=== PATIENT | female | born 1960 | race Caucasian/White ===

== ENCOUNTER 2016-07-28 17:13 | Inpatient (IN) | payer OTHER ==
[~2016-07-28] VITALS: Ht 167.6 cm; Wt 57.4 kg
[2016-07-28 18:53] LABS: HEMOGLOBIN 13.6 gm/dl (12.3-15.3); RED BLOOD COUNT 4.16 M/UL (4.00-5.10); WHITE BLOOD COUNT 13.2 K/UL (4.5-11.0)
[2016-07-29] MEDS ORDERED: CITALOPRAM HBR40 MG PO (01:25)
[2016-07-29] MEDS ORDERED: DILTIAZEM 24HR180 MG PO (01:26)
[2016-07-29] MEDS ORDERED: NEURONTIN 300300 MG PO (01:26)
[2016-07-29] MEDS ORDERED: LISINOPRIL-HCT1 EAC1 PO (01:28)
[2016-07-29] MEDS ORDERED: PRAVASTATIN SOD40 MG PO (01:29)
[2016-07-29] MEDS ORDERED: LORATADINE10 MG PO (01:29)
[2016-07-29] MEDS ORDERED: RANITIDINE HCL300 MG PO (01:30)
[2016-07-29] MEDS ORDERED: ASPIRIN EC81 MG PO (01:30)
[2016-07-29] MEDS ORDERED: TRAZODONE HCL50 MG PO (01:30)
[2016-07-29 07:45] LABS: HEMOGLOBIN 12.8 gm/dl (12.3-15.3); RED BLOOD COUNT 3.92 M/UL (4.00-5.10); WHITE BLOOD COUNT 7.5 K/UL (4.5-11.0)
[2016-07-29 08:02] LABS: BUN/CREATININE RATIO 14 (0-10)
[2016-07-30 06:37] LABS: HEMOGLOBIN 13.4 gm/dl (12.3-15.3); RED BLOOD COUNT 4.21 M/UL (4.00-5.10); WHITE BLOOD COUNT 7.6 K/UL (4.5-11.0)
[2016-07-30 06:46] LABS: BUN/CREATININE RATIO 12 (0-10)
[2016-07-31] MEDS ORDERED: LEVAQUIN750 MG PO (13:31)
[2016-07-31] MEDS ORDERED: CORTISPORIN OTI10 ML AD (13:31)
== END 2016-07-31 13:43 | disposition home or self-care (01) | DRG 194 ==
LOC: ER1 17:13 → MED SURG 4 22:14 → ZEROF 22:14 → MED SURG 4 07-29 01:05
PROVIDERS: Emergency Medicine; Internal Medicine; ADMIT Family Medicine
DX: J18.9 Pneumonia, unspecified organism (principal); E87.1 Hypo-osmolality and hyponatremia; H83.01 Labyrinthitis, right ear; I95.9 Hypotension, unspecified; R07.81 Pleurodynia; I10 Essential (primary) hypertension; F17.210 Nicotine dependence, cigarettes, uncomplicated; E78.5 Hyperlipidemia, unspecified; J44.9 Chronic obstructive pulmonary disease, unspecified; M06.9 Rheumatoid arthritis, unspecified; K21.9 Gastro-esophageal reflux disease without esophagitis; F41.9 Anxiety disorder, unspecified; F32.9 Major depressive disorder, single episode, unspecified; Z82.49 Family history of ischemic heart disease and other diseases of the circulatory system; Z83.3 Family history of diabetes mellitus; Z88.5 Allergy status to narcotic agent; Z88.0 Allergy status to penicillin; Z88.2 Allergy status to sulfonamides; Z91.041 Radiographic dye allergy status; Z79.82 Long term (current) use of aspirin; Z79.899 Other long term (current) drug therapy
CPT/HCPCS: ECHO; 36415; 71010; 71020; 80048; 80053; 81001; 82550; 82553; 83605; 83874; 84484; 85025; 85027; 85610; 85730; 87040; 87086; 87899; 93005; 93306; 94640; 94664; 96374; 96375; 99285; G0378; J0456; J0696; J1885; J2270; J2405; J7030; J7040; J7050

== ENCOUNTER → 2020-07-06 | Outpatient (CLI) | payer OTHER ==
[~2020-07-06] MED LIST: ASPIRIN EC81 MG PO; CITALOPRAM HBR40 MG PO; CORTISPORIN OTI10 ML AD; DILTIAZEM 24HR180 MG PO; LEVAQUIN750 MG PO; LISINOPRIL-HCT1 EAC1 PO; LORATADINE10 MG PO; NEURONTIN 300300 MG PO; PERCOCET 5-3251 EACH PO; PERCOCET 5/325 T1 EA PO; PRAVASTATIN SOD40 MG PO; RANITIDINE HCL300 MG PO; TRAZODONE HCL50 MG PO
== END ==
LOC: KOH-I 06-24 08:30
DX: M54.5 Low back pain (principal); M48.56XA Collapsed vertebra, not elsewhere classified, lumbar region, initial encounter for fracture; M48.061 Spinal stenosis, lumbar region without neurogenic claudication
CPT/HCPCS: 72131

== ENCOUNTER → 2020-10-21 | Outpatient (CLI) | payer OTHER | LOC: KOH-I 12:48 | DX: F17.210 Nicotine dependence, cigarettes, uncomplicated (principal); R91.8 Other nonspecific abnormal finding of lung field | CPT/HCPCS: 71271 ==

== ENCOUNTER 2021-09-16 17:36 | Emergency (ER) | payer OTHER | END 2021-09-16 19:00 | disposition left against medical advice (07) | LOC: ER1 17:36 | DX: M54.9 Dorsalgia, unspecified (principal); M79.606 Pain in leg, unspecified; W19.XXXA Unspecified fall, initial encounter | CPT/HCPCS: 93005; 99281 ==

== ENCOUNTER → 2021-11-04 | Outpatient (CLI) | payer OTHER | LOC: KOH-I 11:00 | DX: F17.210 Nicotine dependence, cigarettes, uncomplicated (principal); R91.1 Solitary pulmonary nodule | CPT/HCPCS: 71271 ==